=== PATIENT | female | born 1990 | race Two or more races ===

== ENCOUNTER 2018-01-16 18:54 | Emergency (ER) | payer OTHER ==
[~2018-01-16] VITALS: Ht 157.5 cm; Wt 65.8 kg
[2018-01-16 19:03] VITALS: BP 104/68
[2018-01-16] MEDS ORDERED: HYDROcodone-ACET 10/325MG TAB PO ONE (21:30)
[2018-01-16] MEDS ORDERED: cefTRIAXone SOD 1,000 MG VL IM ONE (21:45)
== END 2018-01-16 22:28 | disposition home or self-care (01) ==
LOC: ER 18:54
DX: S91.311A Laceration without foreign body, right foot, initial encounter (principal); W64.XXXA Exposure to other animate mechanical forces, initial encounter; Y93.89 Activity, other specified; Y92.89 Other specified places as the place of occurrence of the external cause; Y99.8 Other external cause status
CPT/HCPCS: 12001; 73610; 96372; 99284; J0696